=== PATIENT | female | born 1970 | race Caucasian/White ===

== ENCOUNTER 2019-01-17 10:40 | Emergency (ER) | payer SELFPAY ==
[~2019-01-17] VITALS: Ht 154.9 cm; Wt 113.9 kg
[2019-01-17 10:59] VITALS: Ht 154.9 cm; Wt 113.9 kg
[2019-01-17] MEDS ORDERED: NEURONTIN800 MG PO ×2 (11:02→13:57)
[2019-01-17] MEDS ORDERED: TENORMIN25 MG PO (11:03)
[2019-01-17 11:35] LABS: BASOPHILS 0.6 % (0-2); HEMATOCRIT 38.9 % (36.0-48.0); HEMOGLOBIN 13.4 g/dL (12-16); IMMATURE GRANULOCYTES 0.5 % (0-5); LYMPHOCYTES 35.1 % (15-50); MCH 27.1 pg (26.0-34.0); MCHC 34.4 g/dL (31.0-37.0); MCV 78.7 fL (80.0-100.0); MEAN PLATELET VOLUME 9.1 fL (7.4-10.4); MONOCYTES 5.6 % (2-11); NEUTROPHILS 57.2 % (40-80); PLATELET COUNT 282 10x3/uL (130-400); RBC 4.94 10x6/uL (4.00-5.40); RDW 14.1 % (11.5-14.5); WBC 8.4 10x3/uL (4.8-10.8)
[2019-01-17 11:44] LABS: APPEARANCE CLEAR (CLEAR); COLOR YELLOW (YELLOW)
[2019-01-17 11:45] LABS: BACTERIA MANY /hpf (NONE SEEN); BILIRUBIN NEGATIVE (NEGATIVE); EPITHELIAL CELLS 0-5 /hpf (0-5); GLUCOSE NEGATIVE (NEGATIVE); KETONE NEGATIVE (NEGATIVE); NITRITE NEGATIVE (NEGATIVE); PROTEIN TRACE mg/dL (NEGATIVE); UROBILINOGEN NORMAL (NORMAL); WHITE CELLS - URINE 25-50 /hpf (0-5)
[2019-01-17 11:46] LABS: MUCUS >1+ /lpf (NONE SEEN)
[2019-01-17 11:50] LABS: ALBUMIN 3.8 g/dL (3.4-5.0); ALKALINE PHOSPHATASE 86 U/L (46-116); ALT (SGPT) 28 U/L (10-68); BILIRUBIN - TOTAL 0.37 mg/dL (0.2-1.3); CALC OSMOLALITY 277 mosm/kg (275-300); CALCIUM 9.2 mg/dL (8.5-10.1); CARBON DIOXIDE 25.7 mmol/L (21.0-32.0); CHLORIDE - SERUM 103 mmol/L (98-107); CREATININE - SERUM 0.7 mg/dL (0.6-1.3); GLUCOSE 113 mg/dL (74-106); POTASSIUM - SERUM 3.8 mmol/L (3.5-5.1); PROTEIN - SERUM 7.6 g/dL (6.4-8.2); SODIUM 139 mmol/L (136-145); UREA NITROGEN 10 mg/dL (7-18); eGFR NON AFRICAN AMERICAN > 90 mL/min (90-120)
[2019-01-17 11:56] LABS: AMYLASE - SERUM 35 U/L (25-115); LIPASE 177 U/L (73-393)
[2019-01-17 11:57] LABS: TROPONIN-I < 0.017 ng/mL (0.000-0.060)
[2019-01-17] MEDS ORDERED: CIPRO250 MG PO (13:57)
[2019-01-17 14:16] VITALS: BP 173/90
== END 2019-01-17 14:13 | disposition home or self-care (01) ==
LOC: D.ER 10:40
PROVIDERS: Family Medicine
DX: N39.0 Urinary tract infection, site not specified (principal); R53.81 Other malaise; G25.81 Restless legs syndrome

== ENCOUNTER 2020-02-13 14:31 | Emergency (ER) | payer SELFPAY ==
[~2020-02-13] VITALS: Ht 154.9 cm; Wt 109.1 kg
[~2020-02-13 14:31] MED LIST: CIPRO250 MG PO; NEURONTIN800 MG PO; TENORMIN25 MG PO
[2020-02-13 14:36] VITALS: Ht 154.9 cm; Wt 109.1 kg
[2020-02-13 16:36] LABS: HEMATOCRIT 41.7 % (36.0-48.0); HEMOGLOBIN 13.7 g/dL (12-16); LYMPHOCYTES 20.9 % (15-50); MCH 26.8 pg (26.0-34.0); MCHC 32.9 g/dL (31.0-37.0); MCV 81.4 fL (80.0-100.0); MEAN PLATELET VOLUME 8.9 fL (7.4-10.4); NEUTROPHILS 74.2 % (40-80); PLATELET COUNT 273 10x3/uL (130-400); RBC 5.12 10x6/uL (4.00-5.40); RDW 13.6 % (11.5-14.5); WBC 9.3 10x3/uL (4.8-10.8)
[2020-02-13 16:50] LABS: BILIRUBIN NEGATIVE (NEGATIVE); GLUCOSE NEGATIVE (NEGATIVE); KETONE NEGATIVE (NEGATIVE); NITRITE NEGATIVE (NEGATIVE); UROBILINOGEN NORMAL (NORMAL)
[2020-02-13 16:52] LABS: CALC OSMOLALITY 264 mosm/kg (275-300); CALCIUM 8.5 mg/dL (8.5-10.1); CARBON DIOXIDE 23.8 mmol/L (21.0-32.0); CHLORIDE - SERUM 98 mmol/L (98-107); CREATININE - SERUM 0.7 mg/dL (0.6-1.3); GLUCOSE 103 mg/dL (74-106); POTASSIUM - SERUM 3.9 mmol/L (3.5-5.1); SODIUM 133 mmol/L (136-145); UREA NITROGEN 9 mg/dL (7-18); eGFR NON AFRICAN AMERICAN > 90 mL/min (90-120)
[2020-02-13 17:00] LABS: ALBUMIN 3.8 g/dL (3.4-5.0); ALKALINE PHOSPHATASE 57 U/L (30-120); ALT (SGPT) 22 U/L (10-68); PROTEIN - SERUM 7.7 g/dL (6.4-8.2)
[2020-02-13 18:43] VITALS: BP 143/68
== END 2020-02-13 18:45 | disposition home or self-care (01) ==
LOC: D.ER 14:31
DX: R50.9 Fever, unspecified (principal); Z20.828 Contact with and (suspected) exposure to other viral communicable diseases; R52 Pain, unspecified; R19.7 Diarrhea, unspecified